=== PATIENT | female | born 1940 | race Caucasian/White ===

== ENCOUNTER 2022-07-23 15:56 | Emergency (ER) | payer MEDICARE, OTHER ==
[~2022-07-23] VITALS: Ht 162.6 cm; Wt 73.0 kg
[2022-07-23] MEDS ORDERED: MORPHINE 2 MG/ML 1ML VIAL IV ONE (16:10)
[2022-07-23] MEDS ORDERED: LOSARTAN 50MG TABLET PO ONE (16:15)
[2022-07-23] MEDS ORDERED: amLODIPine 5 MG TAB PO ONE (16:15)
[2022-07-23] MEDS ORDERED: DESMOPRESSIN ACETATE IV ONE (16:40)
[2022-07-23] MEDS ORDERED: NS IV ONE (16:40)
[2022-07-23 16:50] LABS: BASO # 0.1 10^3/uL (0.0-0.2); BASO % 1.7 % (0.0-1.0); EOS # 0.2 10^3/uL (0.0-0.5); EOS % 2.7 % (0.0-3.0); HEMATOCRIT 42.5 % (36.0-47.0); HEMOGLOBIN 13.6 g/dl (12.0-15.5); LYMPH # 2.4 10^3/uL (1.5-5.0); MEAN CORPUSCULAR HEMOGLOBIN 28.3 pg (27.0-33.0); MEAN CORPUSCULAR VOLUME 88.4 fl (80.0-96.0); MONO # 0.5 10^3/uL (0.0-0.8); MONO % 6.2 % (2.0-8.0); NEUTROPHILS # 5.1 10^3/uL (1.5-8.5); NEUTROPHILS % 60.4 % (36.0-66.0); PLATELET COUNT, AUTOMATED 312 10^3/uL (150-450); RED BLOOD COUNT 4.81 10^6/uL (4.00-5.40); WHITE BLOOD COUNT 8.4 10^3/uL (4.0-10.0)
[2022-07-23] MEDS ORDERED: LABETALOL 100MG/20ML VIAL IV STA (16:56)
[2022-07-23 17:08] LABS: INR 0.93; PARTIAL THROMBOPLASTIN TIME 26.1 SECONDS (24.8-34.2); PROTHROMBIN TIME 12.6 SECONDS (12.5-14.5)
[2022-07-23 17:38] LABS: RSV AMPLIFICATION NEGATIVE (NEGATIVE)
[2022-07-23 17:45] LABS: CALCIUM LEVEL 9.7 MG/DL (8.3-10.6); CREATININE FOR GFR 1.49 MG/DL (0.55-1.30); GLOMERULAR FILTRATION RATE 35.7 (>32); POTASSIUM SERUM 5.7 MMOL/L (3.5-5.1)
[2022-07-23 18:03] VITALS: BP 137/65
== END 2022-07-23 18:05 | disposition short-term general hospital (02) ==
LOC: M ED 15:56 → EDBD 15:56 → M ED 18:05
DX: S06.360A Traumatic hemorrhage of cerebrum, unspecified, without loss of consciousness, initial encounter (principal); W01.0XXA Fall on same level from slipping, tripping and stumbling without subsequent striking against object, initial encounter; W22.8XXA Striking against or struck by other objects, initial encounter; I10 Essential (primary) hypertension; N18.9 Chronic kidney disease, unspecified; Z79.01 Long term (current) use of anticoagulants; Y92.481 Parking lot as the place of occurrence of the external cause
CPT/HCPCS: 70450; 71045; 72125; 73030; 73060; 73564; 80048; 85025; 85610; 85730; 87631; 93041; 94760; 96365; 96375; 99285; J2270; J2597

== ENCOUNTER → 2022-08-18 | Outpatient (CLI) | payer MEDICARE | LOC: M PLAIMG 12:55 | PROVIDERS: ATTEND Family Medicine | DX: S06.5X0A Traumatic subdural hemorrhage without loss of consciousness, initial encounter (principal); X58.XXXA Exposure to other specified factors, initial encounter; Y92.9 Unspecified place or not applicable ==

== ENCOUNTER → 2023-01-15 | Outpatient (CLI) | payer MEDICARE ==
[~2023-01-15] MED LIST: GASTROGRAFIN SOLUTION 30ML As Ordered ONE
== END ==
LOC: M RAD 09:30
PROVIDERS: ATTEND Family Medicine
DX: D13.6 Benign neoplasm of pancreas (principal)
CPT/HCPCS: 70450; 74176; Q9963